=== PATIENT | female | born 1935 | race Caucasian/White ===

== ENCOUNTER 2019-03-15 09:11 | Emergency (ER) | payer OTHER ==
[~2019-03-15] VITALS: Ht 157.5 cm; Wt 47.6 kg
[2019-03-15] MEDS ORDERED: CARDIZEM30 MG PO (09:24)
[2019-03-15] MEDS ORDERED: XARELTO20 MG PO (09:25)
== END 2019-03-15 11:26 | disposition home or self-care (01) ==
LOC: ER 09:11
DX: J09.X2 Influenza due to identified novel influenza A virus with other respiratory manifestations (principal)

== ENCOUNTER 2020-07-14 15:52 | Outpatient (CLI) | payer OTHER ==
[~2020-07-14 15:52] MED LIST: CARDIZEM30 MG PO; XARELTO20 MG PO
== END 2020-07-14 16:01 | disposition home or self-care (01) ==
LOC: RAD 15:52
PROVIDERS: ATTEND Physical Medicine & Rehabilitation
DX: M25.531 Pain in right wrist (principal); S62.90XA Unspecified fracture of unspecified hand, initial encounter for closed fracture

== ENCOUNTER 2020-08-02 14:27 | Outpatient (CLI) | payer OTHER | END 2020-08-02 14:45 | disposition home or self-care (01) | LOC: RAD 14:27 | PROVIDERS: ATTEND Orthopaedic Surgery | DX: S52.531A Colles' fracture of right radius, initial encounter for closed fracture (principal) ==

== ENCOUNTER 2020-08-29 13:33 | Outpatient (CLI) | payer OTHER | END 2020-08-29 13:42 | disposition home or self-care (01) | LOC: RAD 13:33 | PROVIDERS: ATTEND Orthopaedic Surgery | DX: S52.611A Displaced fracture of right ulna styloid process, initial encounter for closed fracture (principal); M25.531 Pain in right wrist ==

== ENCOUNTER 2020-09-22 13:27 | Outpatient (CLI) | payer OTHER | END 2020-09-22 13:36 | disposition home or self-care (01) | LOC: RAD 13:27 | PROVIDERS: ATTEND Physical Medicine & Rehabilitation | DX: M41.84 Other forms of scoliosis, thoracic region (principal); M54.2 Cervicalgia; M54.6 Pain in thoracic spine; M54.5 Low back pain ==

== ENCOUNTER 2022-04-16 12:36 | Outpatient (CLI) | payer OTHER | END 2022-04-16 12:37 | disposition home or self-care (01) | LOC: RAD 12:36 | PROVIDERS: ATTEND Physical Medicine & Rehabilitation | DX: M54.50 Low back pain, unspecified (principal) ==

== ENCOUNTER 2023-11-14 17:58 | Inpatient (IN) | payer OTHER ==
[~2023-11-14] VITALS: Ht 162.6 cm; Wt 133.8 kg
[2023-11-14] MEDS ORDERED: FLECAINIDE ACE100 MG (18:09)
[2023-11-14] MEDS ORDERED: NEURONTIN (18:10)
[2023-11-14 20:06] LABS: HEMATOCRIT 41.2 % (36.0-45.00); HEMOGLOBIN 14.2 g/dL (12.0-15.00); MEAN CELL VOLUME 91.9 fL (80.00-100.00); MEAN CORPUSCULAR HEMOGLOBIN 31.5 pg (27.00-32.0); MEAN CORPUSCULAR HGB CONC 34.3 g/dl (32.0-36.0); PLATELET COUNT 214 K/uL (150-450); RED BLOOD COUNT 4.49 M/uL (4.00-6.00); RED CELL DISTRIBUTION WIDTH 14.3 % (11.5-14.5)
[2023-11-14 20:12] LABS: INR 1.14; PARTIAL THROMBOPLASTIN TIME 25.6 SECONDS (22.0-34.0); PROTHROMBIN TIME 11.9 SECONDS (9.0-11.5)
[2023-11-14 20:17] LABS: ALBUMIN 3.9 gm/dL (3.4-5.0); CALCIUM 9.5 mg/dL (8.5-10.1); CREATININE SERUM 0.8 mg/dL (0.55-1.02); GFR 68.17; GLOBULINA 3.5 G/DL (2.4-3.5); POTASSIUM 3.6 mEq/L (3.5-5.1); TOTAL PROTEIN 7.4 gm/dL (6.4-8.2)
[2023-11-14 23:20] LABS: PH,URINE 6.5 (5.0-8.0); URINE APPEARANCE Clear; URINE BILIRRUBIN Negative (NEGATIVE); URINE BLOOD Small; URINE COLOR Yellow; URINE GLUCOSE Negative (NEGATIVE); URINE LEUKOCYTE Small; URINE NITRATE Negative; URINE PROTEIN Negative (NEGATIVE)
[2023-11-14 23:26] LABS: URINE BACTERIA 81.8 uL (0.0-1933); URINE EPITHELIAL CELLS 19.9 uL (0.0-38.8); URINE RBC 8.3 uL (0.0-20.8)
[2023-11-14 23:41] LABS: URINE CRYSTALS FEW /HPF
[2023-11-15 20:40] LABS: HEMOGLOBIN 14.8 g/dL (12.0-15.00); MEAN CELL VOLUME 93.5 fL (80.00-100.00); MEAN CORPUSCULAR HEMOGLOBIN 32.1 pg (27.00-32.0); MEAN CORPUSCULAR HGB CONC 34.3 g/dl (32.0-36.0); PLATELET COUNT 176 K/uL (150-450); RED CELL DISTRIBUTION WIDTH 13.7 % (11.5-14.5)
[2023-11-15 20:53] LABS: ERYTHROCYTE SEDIMENTATION RATE 20 mm/hr
[2023-11-15 21:12] LABS: ALBUMIN 3.5 gm/dL (3.4-5.0); BILIRUBIN TOTAL 1.93 mg/dL (0.3-1.2); C-REACTIVE PROTEIN 9.3 MG/DL (0.00-0.29); CALCIUM 8.8 mg/dL (8.5-10.1); CREATININE SERUM 0.59 mg/dL (0.55-1.02); FERRITIN 257.1 NG/ML (8-252); GFR 96.87; GLOBULINA 3.2 G/DL (2.4-3.5); POTASSIUM 3.26 mEq/L (3.5-5.1); TOTAL PROTEIN 6.7 gm/dL (6.4-8.2)
[2023-11-17 08:22] LABS: CALCIUM 8.9 mg/dL (8.5-10.1); CREATININE SERUM 0.5 mg/dL (0.55-1.02); GFR 117.26; POTASSIUM 3.97 mEq/L (3.5-5.1)
[2023-11-17 08:58] LABS: HEMOGLOBIN 14.2 g/dL (12.0-15.00); MEAN CELL VOLUME 92.5 fL (80.00-100.00); MEAN CORPUSCULAR HGB CONC 34.6 g/dl (32.0-36.0); PLATELET COUNT 151 K/uL (150-450); RED BLOOD COUNT 4.43 M/uL (4.00-6.00); RED CELL DISTRIBUTION WIDTH 13.6 % (11.5-14.5)
[2023-11-18 06:29] LABS: HEMATOCRIT 38.3 % (36.0-45.00); HEMOGLOBIN 13.7 g/dL (12.0-15.00); MEAN CELL VOLUME 90.5 fL (80.00-100.00); MEAN CORPUSCULAR HEMOGLOBIN 32.3 pg (27.00-32.0); MEAN CORPUSCULAR HGB CONC 35.7 g/dl (32.0-36.0); PLATELET COUNT 148 K/uL (150-450); RED BLOOD COUNT 4.23 M/uL (4.00-6.00); RED CELL DISTRIBUTION WIDTH 13.9 % (11.5-14.5)
== END 2023-11-20 17:11 | disposition home or self-care (01) | DRG 521 ==
LOC: ER 17:58 → SEC-K 22:07 → MEDJ 22:07 → MEDI 11-15 01:02 → MEDJ 11-15 11:34 → SURH 11-16 17:56
PROVIDERS: General Practice; Internal Medicine; Internal Medicine Infectious Disease; Orthopaedic Surgery; ADMIT Internal Medicine; ATTEND Internal Medicine
PROC: B24BZZZ Ultrasonography of Heart with Aorta (ICD-10-PCS; 2023-11-15)
PROC: XW033E5 Introduction of Remdesivir Anti-infective into Peripheral Vein, Percutaneous Approach, New Technology Group 5 (ICD-10-PCS; 2023-11-15)
PROC: 0QQ Lower Bones, Repair (ICD-10-PCS; 2023-11-16)
PROC: 0SRS0JA Replacement of Left Hip Joint, Femoral Surface with Synthetic Substitute, Uncemented, Open Approach (ICD-10-PCS; principal; 2023-11-16 18:15)
DX: S72.002A Fracture of unspecified part of neck of left femur, initial encounter for closed fracture (principal); U07.1 COVID-19; M80.052A Age-related osteoporosis with current pathological fracture, left femur, initial encounter for fracture; I48.91 Unspecified atrial fibrillation; W20.1XXA Struck by object due to collapse of building, initial encounter; Y93.01 Activity, walking, marching and hiking; Y92.9 Unspecified place or not applicable; I11.9 Hypertensive heart disease without heart failure

== ENCOUNTER 2024-04-16 09:36 | Outpatient (CLI) | payer OTHER ==
[~2024-04-16 09:36] MED LIST changes: +FLECAINIDE ACE100 MG; +NEURONTIN
[2024-04-16 10:43] LABS: HEMATOCRIT 40.4 % (36.0-45.00); HEMOGLOBIN 13.9 g/dL (12.0-15.00); MEAN CELL VOLUME 91.8 fL (80.00-100.00); MEAN CORPUSCULAR HEMOGLOBIN 31.7 pg (27.00-32.0); MEAN CORPUSCULAR HGB CONC 34.6 g/dl (32.0-36.0); PLATELET COUNT 193 K/uL (150-450); RED BLOOD COUNT 4.39 M/uL (4.00-6.00); RED CELL DISTRIBUTION WIDTH 13.7 % (11.5-14.5)
[2024-04-16 11:32] LABS: ALBUMIN 3.8 gm/dL (3.4-5.0); CALCIUM 9.3 mg/dL (8.5-10.1); CREATININE SERUM 0.71 mg/dL (0.55-1.02); GFR 78.05; GLOBULINA 3.4 G/DL (2.4-3.5); POTASSIUM 4.13 mEq/L (3.5-5.1); T4 FREE 1.12 NG/ML (0.76-1.46); TOTAL PROTEIN 7.2 gm/dL (6.4-8.2); TSH 1.47 uIU/mL (0.358-3.74)
[2024-04-16 12:47] LABS: FOLIC ACID 7.94 ng/ml (4.78-20)
== END 2024-04-16 09:45 | disposition home or self-care (01) ==
LOC: LAB 09:36
PROVIDERS: ATTEND Family Medicine
DX: R41.3 Other amnesia (principal)

== ENCOUNTER 2024-09-08 12:49 | Inpatient (IN) | payer OTHER ==
[~2024-09-08] VITALS: Ht 152.4 cm; Wt 60.8 kg
[2024-09-08] MEDS ORDERED: DILTIAZEM ER120 M2 PO (13:42)
[2024-09-08] MEDS ORDERED: FUROSEMIDE20 MG PO (13:42)
[2024-09-08] MEDS ORDERED: DEXAMETHASONE SODIUM PHOSPHATE 4 MG/ML VIAL IV STA (15:16)
[2024-09-08 16:01] LABS: HEMATOCRIT 42.2 % (36.0-45.00); HEMOGLOBIN 14.1 g/dL (12.0-15.00); MEAN CELL VOLUME 92.2 fL (80.00-100.00); MEAN CORPUSCULAR HEMOGLOBIN 30.8 pg (27.00-32.0); MEAN CORPUSCULAR HGB CONC 33.4 g/dl (32.0-36.0); PLATELET COUNT 205 K/uL (150-450); RED BLOOD COUNT 4.58 M/uL (4.00-6.00); RED CELL DISTRIBUTION WIDTH 14.3 % (11.5-14.5)
[2024-09-08 16:19] LABS: BILIRUBIN TOTAL 0.74 mg/dL (0.3-1.2); BILIRUBIN,CONJUGATED 0.2 mg/dL (0.0-0.2); BILIRUBIN,UNCONJUGATED 0.54 mg/dL (0.0-0.6); CALCIUM 9.3 mg/dL (8.5-10.1); CREATININE SERUM 0.72 mg/dL (0.55-1.02); GFR 76.8; POTASSIUM 3.99 mEq/L (3.5-5.1); TOTAL PROTEIN 7.7 gm/dL (6.4-8.2)
[2024-09-08] MEDS ORDERED: 0.9 % SODIUM CHLORIDE 1,000 ML IV SCH (19:15)
[2024-09-08] MEDS ORDERED: ATORVASTATIN CALCIUM 40 MG TABLET PO SCH (19:18)
[2024-09-08] MEDS ORDERED: GABAPENTIN 100 MG CAPSULE PO SCH (19:20)
[2024-09-08] MEDS ORDERED: ACETAMINOPHEN 500 MG GEL..CAP PO PRN (19:30)
[2024-09-08] MEDS ORDERED: ONDANSETRON HCL 4 MG in 0.9 % SODIUM CHLORIDE 50 ML IV PRN (19:30)
[2024-09-08] MEDS ORDERED: MECLIZINE HCL 25 MG TABLET PO ONE (19:30)
[2024-09-08 23:35] VITALS: BP 132/73; O2SAT 96
[2024-09-08 23:43] LABS: INR 1.24; PARTIAL THROMBOPLASTIN TIME 29.2 SECONDS (22.0-34.0); PROTHROMBIN TIME 13.3 SECONDS (9.0-11.5)
[2024-09-09 02:30] VITALS: BP 128/86; O2SAT 94
[2024-09-09 08:03] VITALS: BP 120/78; O2SAT 97
[2024-09-09] MEDS ORDERED: FUROsemide 20 MG TABLET PO SCH (09:00)
[2024-09-09] MEDS ORDERED: DILTIAZEM HCL 120 MG TABLET PO SCH (09:00)
[2024-09-09] MEDS ORDERED: FAMOTIDINE/PF 20 MG in 0.9 % SODIUM CHLORIDE 8 ML IV PUSH SCH (09:00)
[2024-09-09 09:51] LABS: PH,URINE 6.5 (5.0-8.0); URINE APPEARANCE Clear; URINE BILIRRUBIN Negative (NEGATIVE); URINE COLOR Yellow; URINE GLUCOSE Negative (NEGATIVE); URINE KETONE Negative (NEGATIVE); URINE LEUKOCYTE Trace; URINE NITRATE Negative; URINE PROTEIN Negative (NEGATIVE); URINE UROBILINOGEN 0.2 E.U./dl
[2024-09-09 09:55] LABS: URINE BACTERIA 13.8 uL (0.0-1933); URINE RBC 30.8 uL (0.0-20.8)
[2024-09-09 10:21] LABS: URINE BLOOD TRACES; URINE CAST 0.61 uL (0.0-1.40); URINE EPITHELIAL CELLS 0.9 uL (0.0-38.8)
[2024-09-09] MEDS ORDERED: LORazepam 2 MG/ML VIAL IV PUSH STA (13:49)
[2024-09-09] MEDS ORDERED: RIVAROXABAN 20 MG TABLET PO SCH (17:00)
[2024-09-09 18:51] VITALS: BP 111/59
[2024-09-10 02:55] VITALS: BP 144/74
[2024-09-10 09:01] VITALS: BP 145/83
[2024-09-10 17:49] VITALS: BP 151/71
[2024-09-10 18:07] VITALS: BP 104/58
[2024-09-11 02:30] VITALS: BP 143/78
[2024-09-11 06:42] LABS: HEMATOCRIT 39.8 % (36.0-45.00); HEMOGLOBIN 13.7 g/dL (12.0-15.00); MEAN CELL VOLUME 91.8 fL (80.00-100.00); MEAN CORPUSCULAR HEMOGLOBIN 31.5 pg (27.00-32.0); MEAN CORPUSCULAR HGB CONC 34.4 g/dl (32.0-36.0); PLATELET COUNT 201 K/uL (150-450); RED BLOOD COUNT 4.33 M/uL (4.00-6.00); RED CELL DISTRIBUTION WIDTH 13.9 % (11.5-14.5)
[2024-09-11 07:11] LABS: ALBUMIN 3.3 gm/dL (3.4-5.0); BILIRUBIN TOTAL 1.04 mg/dL (0.3-1.2); CALCIUM 7.7 mg/dL (8.5-10.1); CREATININE SERUM 0.5 mg/dL (0.55-1.02); GFR 116.98; GLOBULINA 2.9 G/DL (2.4-3.5); POTASSIUM 3.38 mEq/L (3.5-5.1); TOTAL PROTEIN 6.2 gm/dL (6.4-8.2)
[2024-09-11 08:10] LABS: PHOSPHOROUS 1.7 mg/dL (2.5-4.9)
[2024-09-11 08:34] VITALS: BP 122/76
[2024-09-11 17:16] VITALS: BP 119/63
[2024-09-11] MEDS ORDERED: POTASSIUM PHOS,M-BASIC-D-BASIC 15 MM in 0.9 % SODIUM CHLORIDE 250 ML IV ONE (21:30)
[2024-09-12 03:06] VITALS: BP 112/65
[2024-09-12 08:41] VITALS: BP 120/68; O2SAT 96
== END 2024-09-12 15:39 | disposition home or self-care (01) | DRG 65 ==
LOC: ER 12:51 → MEDI 19:48
PROVIDERS: General Practice; ADMIT Internal Medicine; ATTEND Internal Medicine
PROC: BW28ZZZ Computerized Tomography (CT Scan) of Head (ICD-10-PCS; 2024-09-08)
PROC: BW38ZZZ Magnetic Resonance Imaging (MRI) of Head (ICD-10-PCS; 2024-09-08)
PROC: B348ZZZ Ultrasonography of Bilateral Internal Carotid Arteries (ICD-10-PCS; 2024-09-08)
PROC: 4A12X4Z Monitoring of Cardiac Electrical Activity, External Approach (ICD-10-PCS; principal; 2024-09-09)
PROC: B24BZZZ Ultrasonography of Heart with Aorta (ICD-10-PCS; 2024-09-09)
DX: I63.89 Other cerebral infarction (principal); I48.20 Chronic atrial fibrillation, unspecified; Z95.0 Presence of cardiac pacemaker; G62.9 Polyneuropathy, unspecified; I11.9 Hypertensive heart disease without heart failure
CPT/HCPCS: 70544

== ENCOUNTER 2025-02-12 08:16 | Outpatient (CLI) | payer OTHER ==
[~2025-02-12 08:16] MED LIST changes: +DILTIAZEM ER120 M2 PO; +FUROSEMIDE20 MG PO
== END 2025-02-12 08:17 | disposition home or self-care (01) ==
LOC: SONOGRAMA 08:16
PROVIDERS: ATTEND Internal Medicine Gastroenterology
DX: R74.01 Elevation of levels of liver transaminase levels (principal)

== ENCOUNTER 2025-08-27 09:47 | Outpatient (CLI) | payer OTHER | END 2025-08-27 09:52 | disposition home or self-care (01) | LOC: RAD 09:47 | PROVIDERS: ATTEND Physical Medicine & Rehabilitation | DX: M17.11 Unilateral primary osteoarthritis, right knee (principal); M17.12 Unilateral primary osteoarthritis, left knee ==